=== PATIENT | female | born 1955 | race Caucasian/White ===

== ENCOUNTER 2022-09-27 12:04 | Emergency (ER) | payer MEDICARE ==
[2022-09-27] MEDS ORDERED: guaiFENesin/CODEINE 5 ML UDC PO STA (13:09)
[2022-09-27] MEDS ORDERED: IPRATROPIUM/ALBUTEROL 3 ML NEB INH STA (13:10)
--- NOTE | 2022-09-27 13:11 | ED Physician Documentation ---
History of Present Illness - Stated complaint Stated Complaint: COUGH - Chief complaint Chief Complaint: Resp - History obtained from History obtained from: Patient - History of Present Illness Timing: How many days ago (10) - Additonal information Additional information: 66-year-old female presents the emergency department for cough x10 days. She was seen recently at [facility] for same. She states she was placed on a prednisone taper x10 days. Also has an albuterol inhaler. She states that she does not feel significantly short of breath, but is having continued coughing. She states they did a COVID test that was negative. No fevers. No chills. She is using the albuterol with a spacer. She states she is having difficulty sleeping due to the coughing. Review of Systems Constitutional: denies: Fever, Chills Nose: reports: Rhinorrhea / runny nose Throat: reports: Sore throat Respiratory: reports: Cough. denies: Dyspnea, Wheezing GI: denies: Abdominal Pain, Nausea, Vomiting, Diarrhea Skin: denies: Rash Musculoskeletal: denies: Neck pain, Back pain Neurologic: denies: Headache PD PAST MEDICAL HISTORY - Past Medical History Past Medical History: Yes Cardiovascular: Hypertension Respiratory: Asthma Endocrine/Autoimmune: HyPOthyroidism - Past Surgical History Past Surgical History: No - Present Medications Home Medications: Ambulatory Orders Medication Instructions Recorded Confirmed Benzonatate [Tessalon] 200 mg PO TID PRN #60 cap 09/27/22 Codeine Phosphate/Guaifenesin 10 ml PO Q6H PRN #240 ml 09/27/22 [Guaifen-Codeine 200-20 mg/10Ml] - Allergies Allergies/Adverse Reactions: Allergies Allergy/AdvReac Type Severity Reaction Status Date / Time Sulfa (Sulfonamide Allergy Hives Verified 09/27/22 12:14 Antibiotics) - Social History Does the pt smoke?: No Smoking Status: Never smoker Does the pt drink ETOH?: Yes ETOH Use: Wine Does the pt have substance abuse?: No - POLST Patient has POLST: No PD ED PE NORMAL - Vitals Vital signs reviewed: Yes - General General: Alert and oriented X 3, No acute distress - HEENT HEENT: PERRL, Moist mucous membranes - Neck Neck: Supple, no meningeal sign - Cardiac Cardiac: RRR, Strong equal pulses - Respiratory Respiratory: No respiratory distress, Clear bilaterally - Abdomen Abdomen: Soft, Non tender, Non distended - Derm Derm: Warm and dry - Extremities Extremities: No edema - Neuro Neuro: Alert and oriented X 3 - Psych Psych: Normal mood, Normal affect Results - Vitals Vitals: Vital Signs - 24 hr 09/27/22 09/27/22 12:09 13:34 Temperature 36.1 C L Heart Rate 64 70 Respiratory 20 24 Rate Blood Pressure 141/80 H O2 Saturation 97 Oxygen O2 Source Room air - Rads (name of study) cxr Radiology: Final report received, See rad report PD Medical Decision Making - ED course Complexity details: reviewed results, re-evaluated patient, considered differential, d/w patient, d/w family ED course: 66-year-old female with what appears to be a viral upper respiratory infection. She is very well-appearing, nontoxic. Afebrile. No hypoxia. No respiratory distress. Feels better after Guaifenesin with codeine as well as a DuoNeb treatment. No indication for antibiotics. A respiratory PCR was sent. Patient counseled regarding signs and symptoms for which I believe and urgent re- evaluation would be necessary. Patient with good understanding of and agreement to plan and is comfortable going home at this time This document was made in part using voice recognition software. While efforts are made to proofread this document, sound alike and grammatical errors may occur. Departure - Departure Disposition: 01 Home, Self Care Clinical Impression: Viral URI Condition: Good Instructions: ED URI Viral Follow-Up: your,doctor in 1 week [Other] Prescriptions: Codeine Phosphate/Guaifenesin [Guaifen-Codeine 200-20 mg/10Ml] 10 ml PO Q6H PRN #240 ml PRN Reason: Cough Benzonatate [Tessalon] 200 mg PO TID PRN #60 cap PRN Reason: Cough Comments: Your prescription was sent to [facility] in [place]. Your respiratory panel will be back later today, you can check the results of this on your patient portal. We have sent 2 different types of cough medication to the pharmacy for you. You can use both of these together. Your chest x-ray does not show any evidence of pneumonia. Please return if you worsen. Please continue your current medications at home.
--- NOTE | 2022-09-27 13:21 | XRAY Report ---
PROCEDURE: Chest 2 View X-Ray INDICATIONS: Productive cough with SOA. TECHNIQUE: 2 views of the chest were acquired. COMPARISON: None. FINDINGS: Surgical changes and devices: None. Lungs and pleura: No pleural effusions or pneumothorax. Lungs are clear. Mediastinum: Mediastinal contours are normal. Heart size is normal. Bones and chest wall: No suspicious bony abnormalities. Soft tissues appear unremarkable. IMPRESSION: No acute radiographic abnormality. Reviewed by: Juan Lowry MD on 09/27/2022 1:19 PM [facility] Approved by: Juan Lowry MD on 09/27/2022 1:19 PM [facility] Station ID: [id number]
[2022-09-27 14:10] VITALS: BP 127/69
[2022-09-27 14:38] LABS: B. PARAPERTUSSIS- RESP PCR PAN NOT DETECTED; B. PERTUSSIS- RESP PCR PANEL NOT DETECTED; C. PNEUMONIAE- RESP PCR PANEL NOT DETECTED; CORONAVIRUS 229E-RESP PCR NOT DETECTED; CORONAVIRUS HKU1-RESP PCR NOT DETECTED; CORONAVIRUS NL63-RESP PCR NOT DETECTED; CORONAVIRUS OC43-RESP PCR NOT DETECTED; HUMAN METAPNEUMOVIRUS NOT DETECTED; INFLUENZA A- RESP PCR PANEL NOT DETECTED; INFLUENZA B - RESP PCR PANEL NOT DETECTED; M. PNEUMONIAE- RESP PCR PANEL NOT DETECTED; PARAINFLUENZA VIRUS 1 NOT DETECTED; PARAINFLUENZA VIRUS 2 NOT DETECTED; PARAINFLUENZA VIRUS 3 NOT DETECTED; PARAINFLUENZA VIRUS 4 NOT DETECTED; RHINOVIRUS/ENTEROVIRUS DETECTED; RSV- RESP PCR PANEL NOT DETECTED; SARS-CoV-2 -RESP PCR PANEL NOT DETECTED
== END 2022-09-27 14:10 | disposition home or self-care (01) ==
LOC: ED 12:04
DX: J06.9 Acute upper respiratory infection, unspecified (principal); I10 Essential (primary) hypertension; J45.909 Unspecified asthma, uncomplicated; Z20.822 Contact with and (suspected) exposure to COVID-19
CPT/HCPCS: 71046; 87633; 94640; 94664; 99283; 99284; A9270

== ENCOUNTER 2024-05-04 13:32 | Outpatient (CLI) | payer MEDICARE | END 2024-05-04 23:59 | disposition left against medical advice (07) | LOC: EMS 13:32 | DX: S49.91XA Unspecified injury of right shoulder and upper arm, initial encounter (principal); W54.1XXA Struck by dog, initial encounter; W18.39XA Other fall on same level, initial encounter; Y93.H2 Activity, gardening and landscaping; Y92.007 Garden or yard of unspecified non-institutional (private) residence as the place of occurrence of the external cause ==

== ENCOUNTER 2024-05-04 14:54 | Emergency (ER) | payer MEDICARE ==
[2024-05-04 15:08] VITALS: O2SAT 100
--- NOTE | 2024-05-04 15:20 | ED Physician Documentation ---
History of Present Illness - Stated complaint Stated Complaint: GLF - Chief complaint Chief Complaint: Trauma Ext - History obtained from History obtained from: Patient - Additonal information Additional information: This is a 68-year-old female who was out walking her dog today when her dog lunged at rabbit taking the patient forward and she fell face forward on outstretched right arm. She presents now with right upper arm and shoulder pain. She states she did not hit her head, had no loss of consciousness, denies any other injuries in the fall. Denies any pain to the wrist hands forearms el bows, pain is directly in the right upper arm and shoulder. She is not attempted any treatment prior to arrival. PD PAST MEDICAL HISTORY - Past Medical History Past Medical History: Yes Cardiovascular: Hypertension Respiratory: Asthma Endocrine/Autoimmune: HyPOthyroidism - Past Surgical History Past Surgical History: No - Present Medications Home Medications: Ambulatory Orders Medication Instructions Recorded Confirmed Benzonatate [Tessalon] 200 mg PO TID PRN #60 cap 09/27/22 Codeine Phosphate/Guaifenesin 10 ml PO Q6H PRN #240 ml 09/27/22 [Guaifen-Codeine 200-20 mg/10Ml] HYDROcod/ACETAM 5/325 [[place] 5/325] 1 - 2 tablet PO Q6H PRN #12 tablet 05/04/24 ONDANSETRON ODT Prepack 2 [ZOFRAN 4 mg TL Q6H #10 tablet 05/04/24 ODT Prepack 2] - Allergies Allergies/Adverse Reactions: Allergies Allergy/AdvReac Type Severity Reaction Status Date / Time Sulfa (Sulfonamide Allergy Hives Verified 05/04/24 15:00 Antibiotics) - Social History Does the pt smoke?: No Smoking Status: Never smoker Does the pt drink ETOH?: Yes Does the pt have substance abuse?: No - POLST Patient has POLST: No PD ED PE NORMAL - Vitals Vital signs reviewed: Yes - General General: Alert and oriented X 3, No acute distress, Well developed/nourished - HEENT HEENT: Atraumatic, PERRL, EOMI, Moist mucous membranes - Cardiac Cardiac: RRR, No murmur - Respiratory Respiratory: No respiratory distress, Clear bilaterally - Derm Derm: Normal color, Warm and dry - Extremities Extremities: Other (No obvious deformity, tenderness with palpation of the right upper arm and anterior right shoulder no obvious dislocation. No pain of the right clavicle or scapula, no pain in the right elbow forearm wrist. 2+ radial pulses with brisk cap refill) Results - Vitals Vitals: Vital Signs - 24 hr 05/04/24 14:58 Temperature 36.6 C Heart Rate 60 Respiratory 12 Rate Blood Pressure 167/88 H O2 Saturation 100 Oxygen O2 Source Room air - Rads (name of study) No standard instances Relevant Findings:: Final report received PD Medical Decision Making - ED course Complexity details: reviewed results, d/w patient ED course: 68-year-old female presented after a fall as described in HPI. She has pain focally in her right upper arm, sustained no other injuries. X-ray reveals a proximal humerus fracture. I have placed the patient in a sling and advised that she will need to follow-up with orthopedic surgery outpatient soon as possible. She was given pain control and advised to continue as needed Tylenol or ibuprofen at home with [place] for breakthrough. I recommended cool compress, and I discussed return precautions. Patient discharged home in stable condition. Departure - Departure Disposition: 01 Home, Self Care Clinical Impression: Proximal humerus fracture Condition: Good Instructions: ED Fx Upper Ext Follow-Up: [facility] [Provider Group] Prescriptions: HYDROcod/ACETAM 5/325 [[place] 5/325] 1 - 2 tablet PO Q6H PRN #12 tablet PRN Reason: Pain ONDANSETRON ODT Prepack 2 [ZOFRAN ODT Prepack 2] 4 mg TL Q6H #10 tablet Comments: You have broken the upper part of your arm where the humerus turns into the shoulder. We have placed you in a sling as we typically do not cast this area at least immediately. Please call today or tomorrow to schedule a follow-up with orthopedic surgery within the next week. In the meantime, utilize a cool compress and listening for positioning and pain control. I am prescribing a short course of narcotic pain medication for you. These are potentially dangerous and addictive medications that should be used carefully. These medications may constipate you. Take an kycl-xce-uyiwese stool softener (docusate) twice daily with plenty of water while taking these medications. If you go 24 hours without a bowel movement, take pqoq-[id number] miralax, per package instructions. Do not drink or drive while taking these medications. If you received narcotic or sedating medications while in the emergency department, do not drive for 24 hours. Store this medication in a safe, secure place and out of reach of children. It is a violation of federal law to give or sell this medication to another person or to use in a manner other than prescribed. The ED will not refill narcotic prescriptions, including prescriptions lost or stolen. To dispose of unwanted medications: 1. [facility] provides a drop box for medication in pill form only (no liquids) 8:00 am to 4:30 p.m. Friday-Friday in the lobby of the [facility], [address] Empty pills into ziplock bag before disposal. Call [phone] for information. 2.[facility] is a free service available to all [facility] residents. Go to [email or web address] Note that many narcotic pain relievers also contain Tylenol/acetaminophen. Please ensure that your total dose of acetaminophen from all sources does not exceed 3 g (3000 mg) per day. Forms: PCP List
[2024-05-04] MEDS: ACETAMINOPHEN 325 MG TABLET PO STA (15:24)
[2024-05-04] MEDS: KETOROLAC 60 MG/2 ML VIAL IM STA (15:25)
--- NOTE | 2024-05-04 15:41 | XRAY Report ---
PROCEDURE: Shoulder 2+V RT INDICATIONS: fall TECHNIQUE: 3 views of the shoulder were acquired. COMPARISON: None. FINDINGS: Bones: Acute comminuted and impacted fracture involving proximal left humeral shaft is seen with fra cture line extending to involve lesser and greater tuberosities and laterally displaced greater tuber osity fragment. There is medial displacement of proximal humeral shaft. No suspicious bony lesions. Visualized ribs appear intact. Soft tissues: No suspicious soft tissue calcifications. The visualized lungs are within normal limi ts. IMPRESSION: Acute comminuted, impacted and displaced right proximal humeral fracture as above. Reviewed by: Xander Waldron MD on 05/04/2024 3:39 PM PDT Approved by: Xander Waldron MD on 05/04/2024 3:39 PM PDT Station ID: [id number]
[2024-05-04] MEDS: HYDROcod/ACETAM 5/325 MG TABLET PO STA (15:58)
[2024-05-04 16:04] VITALS: BP 140/86
== END 2024-05-04 16:01 | disposition home or self-care (01) ==
LOC: ED 14:54
DX: S42.291A Other displaced fracture of upper end of right humerus, initial encounter for closed fracture (principal); W18.39XA Other fall on same level, initial encounter; Y93.K1 Activity, walking an animal; I10 Essential (primary) hypertension; J45.909 Unspecified asthma, uncomplicated; E03.9 Hypothyroidism, unspecified
CPT/HCPCS: 73030; 96372; 99283; 99284; A9270